=== PATIENT | male | born 1945 | race Caucasian/White ===

== ENCOUNTER 2025-03-24 08:37 | Emergency (ER) | payer MEDICARE, OTHER, SELFPAY ==
--- NOTE | 2025-03-24 10:35 | ED.GENMED ---
History of Present Illness
<Cindy Sebastian MD, Resident - Last Filed: 03/24/25 13:20>
General
Chief Complaint: Back Pain
Source: patient (patient is hard of hearing, so daughters provided significant PMH) and family (2 daughters)
Time Seen by Provider: 03/24/25 09:55
Nursing documentation reviewed up to this point in time: agreed with
History of Present Illness
History of Present Illness:
Mr. Portillo is a 80yoM with a PMH notable for prostate carcinoma (dx ~12 years ago), double hip replacement (~20 years ago), vein removal for peripheral vascular disease, and open heart surgery, who is presenting with 1 week of left lower back pain
that is worsening.
The L LBP is worst in the morning. He always sleeps on his back due to wearing a CPAP. He denies the pain radiating and LLE weakness. He reports no changes in stooling. The pain is also exacerbated by bending forward.
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 He received radiotherapy for prostate cancer; no surgery. Denied flank pain, abdominal pain.
He also states he has been dealing with a lot of stress with the passing of his brother 1 week ago.
Review of Systems
<Cindy Sebastian MD, Resident - Last Filed: 03/24/25 13:20>
Review of Systems
All Other Systems: ROS reviewed and negative except as documented in HPI and ROS
Phy Exam
<Cindy Sebastian MD, Resident - Last Filed: 03/24/25 13:20>
Physical Exam
Physical Exam:
MSK: tenderness at L sacroiliac area, no skin ulceration or erythema
Gait symmetric and slow
No tenderness to log roll, leg raise, RODRIGO, FADIR
Left lower leg edema > right.
Diffuse white flaky plaques across anterior tibial areas
Heart: RRR
Lungs: CTAB
GI: normal bowel sounds, no tenderness to palpation
Course
<Cindy Sebastian MD, Resident - Last Filed: 03/24/25 13:20>
Orders/Labs/Results
Orders:
Orders
03/24/25 10:35
CT Abd/pel Without Iv Or Oral Urgent
Comment:
Reason For Exam: left flank and low back pain
03/24/25 11:26
Complete Blood Count/With Diff Urgent
Comprehensive Metabolic Panel Urgent
03/25/25 08:00
Prednisone [Deltasone] 40 mg PO DAILY
Abnormal Lab Results
03/24/25
11:26
RBC 4.30 L 10^6/uL
(4.70-6.10)
MCH 32.8 H pg
(27.0-31.0)
Absolute Monos (auto) 0.8 H 10^3/uL
(0.1-0.6)
BUN 21 H mg/dl
(9-20)
Glucose 101 H mg/dl
(70-99)
03/24/25 11:26
03/24/25 11:26
Vital Signs
Initial and Last Documented VS:
Initial Vital Signs
Temp Pulse Resp Pulse Ox
98.3 F 67 18 98
03/24/25 08:38 03/24/25 08:38 03/24/25 08:38 03/24/25 08:38
Last Documented Vital Signs
Temp Pulse Resp BP Pulse Ox
98.2 F 82 20 131/85 97
03/24/25 11:29 03/24/25 11:29 03/24/25 11:29 03/24/25 11:29 03/24/25 11:45
<Dipesh Mansfield, DO - Last Filed: 03/24/25 14:00>
Orders/Labs/Results
Orders:
Orders
03/24/25 10:35
CT Abd/pel Without Iv Or Oral Urgent
Comment:
Reason For Exam: left flank and low back pain
03/24/25 11:26
Complete Blood Count/With Diff Urgent
Comprehensive Metabolic Panel Urgent
03/25/25 08:00
Prednisone [Deltasone] 40 mg PO DAILY
Abnormal Lab Results
03/24/25
11:26
RBC 4.30 L 10^6/uL
(4.70-6.10)
MCH 32.8 H pg
(27.0-31.0)
Absolute Monos (auto) 0.8 H 10^3/uL
(0.1-0.6)
BUN 21 H mg/dl
(9-20)
Glucose 101 H mg/dl
(70-99)
03/24/25 11:26
03/24/25 11:26
Vital Signs
Initial and Last Documented VS:
Initial Vital Signs
Temp Pulse Resp Pulse Ox
98.3 F 67 18 98
03/24/25 08:38 03/24/25 08:38 03/24/25 08:38 03/24/25 08:38
Last Documented Vital Signs
Temp Pulse Resp BP Pulse Ox
98.2 F 82 20 131/85 97
03/24/25 11:29 03/24/25 11:29 03/24/25 11:29 03/24/25 11:29 03/24/25 11:45
<Cindy Sebastian MD, Resident - Last Filed: 03/24/25 13:20>
MDM/Problems Addressed
MDM/Problems Addressed:
Mr. Portillo is a 80yoM with a PMH notable for prostate cancer, bilateral hip replacement, and venous removal for PVD, who is presenting with 1 week of left lower back pain.
Differential
- metastasis / pathological fracture
- msk: degenerative disc disease
- renal stone, AAA, pancreatitis, pyelonephritis
- forming sacral decubitus ulcer
Non-contrast CT abd/pelvis to evaluate spine and possible intra-abdominal causes of LBP, including renal stone
CBC, CMP
CT demonstrated severe degenerative disc disease and did not demonstrate spinal metastasis, AAA, or renal abnormalities.
Recommend prednisone 40 mg for 4 days for pain control and inflammation.
Chronic conditions affecting care: Cancer and Other (bilateral total hip arthroplasty)
Acute Exacerbation and/or Progression of Chronic Illness:
prostate cancer with known spinal met per daughter
<Cindy Sebastian MD, Resident - Last Filed: 03/24/25 13:20>
*Pulse Oximetry
SaO2: 98
Oxygen Mode of Delivery: Room air
Patient hypoxic: no
*Critical Care Note
Total Time (30-74mins, 75-104mins- exclusive of procedures): Not Applicable
ED Attending Note
<Cindy Sebastian MD, Resident - Last Filed: 03/24/25 13:20>
-
Portions of this chart may have been created with voice recognition software.� Occasional wrong word or��sound alike� substitutions may have occurred due to the inherent limitations of voice recognition software.
<Dipesh Mansfield, DO - Last Filed: 03/24/25 14:00>
ED Attending Note
Patient seen and examined by attending physician: Yes
I performed a history and physical exam of patient and discussed management with resident, I reviewed resident's note and agree with documented findings and plan of care.: Yes
ED Attending Note:
I have seen and evaluated the patient with a [id number] encounter. I have spoken to the resident and involved in the medical history, the physical exam, medical decision making.
Evaluation and management service: agree unless noted differently below.
Results interpretation: agree unless noted differently below.
Focused HPI: 80-year-old male presenting for evaluation of left back pain. Throughout the past week, symptoms have worsened in the morning. He states pain radiates to his leg. Tylenol has offered minimal relief. He denies any trouble defecating
or urinating
Physical exam: No skin changes to back. Minor tenderness to the left sacroiliac region. Negative straight leg raise. Distal leg neurovascularly intact
Medical Decision Making: Given prior history of prostate cancer will obtain CT to rule out any evidence of metastatic disease or possible pathologic fracture or possible kidney stone. Family at bedside indicating that there is a small area of
metastasis to the back which is monitored in the outpatient setting
Discharge Plan
Departure
Patient Disposition: Home (Routine Discharge)
Date of Disposition: 03/24/25
Time of Disposition: 13:03
Patient with high blood pressure during this ER visit?: Yes
Condition: Fair
Discharge Problem:
Lower back pain
Instructions: Low Back Pain (DC)
Prescriptions:
New
prednisone 20 mg tablet
40 mg PO DAILY Qty: 10 0RF
Referrals:
Lela Gibbons MD [Family Provider, Internal Medicine]
Activity Restrictions/Additional Instructions:
Mr. Mau Portillo, you came to the ED for worsening left lower back pain.
After evaluating for life-threatening causes of lower back pain with a CT scan of your abdomen, the most likely cause is degenerative disc disease. Spinal metastasis was not demonstrated on CT.
Two pulmonary nodules were demonstrated on the CT and follow-up CT in 3-6 months was recommended.
Please return if you experience pain radiating down your leg, leg weakness, or loss of bowel or bladder control. It was a pleasure to be a part of your care team.
Interventions
Interventions:
*Risk Screen - Suicide Last Done: 03/24/25 11:29
*General Assessment Last Done: 03/24/25 11:29
*Neglect/Abuse Screening Last Done: 03/24/25 11:29
*ED- Fall Risk Assessment Last Done: 03/24/25 11:29
*ED COVID-19 Vaccine History Last Done: 03/24/25 11:29
*Nursing Disposition Last Done: 03/24/25 13:13
ED-Musculoskeletal Assessment Last Done: 03/24/25 11:29
Discharge Date and Time
Discharge Date/Time: 03/24/25 13:37
Print Language: [id number]
[2025-03-24 11:29] VITALS: BP 131/85
[2025-03-24 12:02] LABS: ALT (SGPT) 20 U/L (0-50); AST (SGOT) 23 U/L (17-59); Albumin 4.4 g/dl (3.5-5.0); Alkaline Phosphatase 63 U/L (38-126); Blood Urea Nitrogen 21 mg/dl (9-20); Calcium 9.3 mg/dl (8.4-10.2); Carbon Dioxide 25 mmol/L (22-30); Chloride 106 mmol/L (98-107); Estimated Creatinine Clearance 55 ml/min; Glucose 101 mg/dl (70-99); Potassium 4.6 mmol/L (3.5-5.1); Sodium 135 mmol/L (135-145); Total Protein 7.2 g/dl (6.3-8.2); eGFR > 60.00
[2025-03-24 12:12] LABS: Hematocrit 40.0 % (39.0-52.0); Hemoglobin 14.1 g/dL (13.0-18.0); Mean Corp Hgb Conc. 35.3 g/dL (33.0-37.0); Mean Corpuscular Volume 93.0 fL (80.0-94.0); Nucleated Red Blood Cells % 0 % (-); Platelet Count 142 10^3/uL (130-400); Red Cell Dist. Width 11.8 % (11.5-14.5)
== END 2025-03-24 13:37 | disposition home or self-care (01) ==
LOC: EMR 08:37
PROVIDERS: EMERGENCY PHYSICIAN Student in an Organized Health Care Education/Training Program; FAMILY PHYSICIAN Internal Medicine
DX: M54.50 Low back pain, unspecified (principal); R03.0 Elevated blood-pressure reading, without diagnosis of hypertension
CPT/HCPCS: 99284; 74176; 80053; 85025